=== PATIENT | female | born 1985 | race Caucasian/White ===

== ENCOUNTER 2024-10-01 19:40 | Outpatient (CLI) | payer OTHER ==
[~2024-10-01] VITALS: Ht 152.4 cm; Wt 112.9 kg
[~2024-10-01 19:40] MED LIST: PEPCID40 MG PO; PHENERGAN25 MG PO; PRENATAL CAPLE1 EACH PO
[2024-10-01 20:00] VITALS: BP 133/82
[2024-10-01] MEDS ORDERED: RINGERS SOLUTION,LACTATED 1,000 ML IV SCH (20:30)
[2024-10-01] MEDS ORDERED: IRON18 M1 PO (20:38)
[2024-10-01 21:02] LABS: BASO % 0.4 % (0.1-1.2); EOS # 0.19 (0.04-0.54); EOS % 1.4 % (0.7-7.0); LYMPH # 2.03 (1.18-3.74); LYMPH % 15.4 % (19.3-53.1); MEAN PLATELET VOLUME 9.70 fl (9.4-12.4); MONO # 0.57 (0.24-0.82); MONO % 4.3 % (4.7-12.5); NEUT # 10.22 (1.56-6.13); NEUT % 77.7 % (34.0-71.1); RED CELL DISTRIBUTION WIDTH 14.8 % (11.6-14.4); URINE APPEARANCE Clear; URINE BILIRRUBIN Negative (NEGATIVE); URINE BLOOD Trace; URINE COLOR Yellow; URINE GLUCOSE Negative (NEGATIVE); URINE KETONE Negative (NEGATIVE); URINE LEUKOCYTE Negative; URINE NITRATE Negative; URINE PROTEIN Negative (NEGATIVE); URINE UROBILINOGEN 0.2 E.U./dl
[2024-10-01 21:06] LABS: URINE BACTERIA 316.6 uL (0.0-1933); URINE EPITHELIAL CELLS 6.3 uL (0.0-38.8); URINE RBC 10.4 uL (0.0-20.8); URINE WBC 6.4 uL (0.0-23.2)
[2024-10-01 21:10] LABS: URINE CAST 0.00 uL (0.0-1.40)
[2024-10-01 21:31] LABS: INR 0.97
[2024-10-01 21:40] LABS: ALT/SGPT 16.0 U/L (12-78); AST/SGOT 12.0 U/L (15-37); BILIRUBIN TOTAL 0.39 mg/dL (0.3-1.2); BUN CREA RATIO 9.0 (7.0-25.0); CREATININE SERUM 0.58 mg/dL (0.55-1.02); GFR 117.63; GLOBULINA 3.7 G/DL (2.4-3.5); GLUCOSE FASTING 103.0 mg/dL (65-100); OSMOLALITY SERUM 279.0 MOSM/KG (275-295)
[2024-10-01 23:35] VITALS: BP 119/76; O2SAT 100
[2024-10-02 03:10] VITALS: BP 121/74
[2024-10-02 07:24] VITALS: BP 130/79
[2024-10-02 11:44] VITALS: BP 124/77
[2024-10-02 15:11] VITALS: BP 130/78
[2024-10-02 20:52] LABS: CREATININE URINE 27.5 MG/DL; URINE PROT QUANT 24HR 6.7 MG/DL
[2024-10-02 21:05] LABS: URINE PROT QUANT 24 HR 288.1 MG/24HR (42-225)
[2024-10-02 21:06] LABS: CREATINE CLEARANCE 158.2 ML/MIN (97-137); CREATININE SERUM 0.52 mg/dL (0.6-1.0)
[2024-10-02 21:14] VITALS: BP 125/70
[2024-10-03 07:28] VITALS: BP 112/74
== END 2024-10-03 09:50 | disposition home or self-care (01) ==
LOC: OBS/DEL 19:40
PROVIDERS: ATTEND Specialist
DX: O26.892 Other specified pregnancy related conditions, second trimester (principal); Z3A.26 26 weeks gestation of pregnancy

== ENCOUNTER 2024-12-27 04:07 | Inpatient (IN) | payer OTHER ==
[2024-12-27] VITALS (7 sets, daily range): BP systolic 126–148; BP diastolic 51–84
[~2024-12-27] VITALS: Ht 160 cm; Wt 109.8 kg
[~2024-12-27 04:07] MED LIST changes: +IRON18 M1 PO
[2024-12-27] MEDS ORDERED: RINGERS SOLUTION,LACTATED 1,000 ML IV SCH (04:30)
[2024-12-27] MEDS ORDERED: ADULT ASPIRIN81 MG PO (04:39)
[2024-12-27 06:47] LABS: BASO % 0.4 % (0.1-1.2); EOS # 0.13 (0.04-0.54); EOS % 1.0 % (0.7-7.0); LYMPH # 2.53 (1.18-3.74); LYMPH % 19.8 % (19.3-53.1); MEAN PLATELET VOLUME 10.80 fl (9.4-12.4); MONO # 0.69 (0.24-0.82); MONO % 5.4 % (4.7-12.5); NEUT # 9.19 (1.56-6.13); NEUT % 72.0 % (34.0-71.1); RED CELL DISTRIBUTION WIDTH 13.5 % (11.6-14.4)
[2024-12-27 06:52] LABS: URINE APPEARANCE Clear; URINE BILIRRUBIN Negative (NEGATIVE); URINE BLOOD Negative; URINE COLOR Yellow; URINE GLUCOSE Negative (NEGATIVE); URINE KETONE Negative (NEGATIVE); URINE LEUKOCYTE Trace; URINE NITRATE Negative; URINE PROTEIN Negative (NEGATIVE); URINE UROBILINOGEN 0.2 E.U./dl
[2024-12-27 06:56] LABS: URINE BACTERIA 185.9 uL (0.0-1933); URINE EPITHELIAL CELLS 6.6 uL (0.0-38.8); URINE WBC 11.6 uL (0.0-23.2)
[2024-12-27 07:10] LABS: INR 0.94
[2024-12-27 07:12] LABS: URINE CAST 0.00 uL (0.0-1.40); URINE RBC 1.7 uL (0.0-20.8)
[2024-12-27 07:24] LABS: ALT/SGPT 25.0 U/L (12-78); AST/SGOT 18.0 U/L (15-37); BILIRUBIN TOTAL 0.47 mg/dL (0.3-1.2); BUN CREA RATIO 9.0 (7.0-25.0); CREATININE SERUM 0.56 mg/dL (0.55-1.02); GFR 121.81; GLOBULINA 3.6 G/DL (2.4-3.5); GLUCOSE FASTING 90.0 mg/dL (65-100); OSMOLALITY SERUM 276.0 MOSM/KG (275-295)
[2024-12-27] MEDS ORDERED: OXYTOCIN 500 ML IV SCH (09:00)
[2024-12-27] MEDS ORDERED: MORPHINE SULFATE 4 MG/ML CARTRIDGE IV ONE (14:15)
[2024-12-27] MEDS ORDERED: CHLORHEXIDINE GLUCONATE 120 ML BOTTLE TOP ONE (23:08)
[2024-12-27] MEDS ORDERED: OXYTOCIN 20 UNITS/1000ML RL PIGGYBAG IV ONE (23:08)
[2024-12-27] MEDS ORDERED: ERYTHROMYCIN BASE OPHT 1GM EACH TUBE OP ONE (23:08)
[2024-12-27] MEDS ORDERED: LIDOCAINE HCL 1% 10ML VIAL ONE (23:09)
[2024-12-28] MEDS ORDERED: CEFAZOLIN SODIUM 1,000 MG VIAL ONE ×2 (00:20→00:30)
[2024-12-28] MEDS ORDERED: OXYTOCIN 10 UNITS/ML VIAL ONE ×2 (00:28→03:45)
[2024-12-28] MEDS ORDERED: ERYTHROMYCIN BASE OPHT 1GM EACH TUBE OP ONE (00:30)
[2024-12-28] MEDS ORDERED: MORPHINE SULFATE 4 MG/ML VIAL IV PRN (03:00)
[2024-12-28] MEDS ORDERED: KETOROLAC TROMETHAMINE 60 MG VIAL IM ONE (03:00)
[2024-12-28 05:15] VITALS: BP 126/72
[2024-12-28 07:19] LABS: BASO % 0.2 % (0.1-1.2); EOS # 0.01 (0.04-0.54); EOS % 0.1 % (0.7-7.0); LYMPH # 1.10 (1.18-3.74); LYMPH % 6.2 % (19.3-53.1); MEAN PLATELET VOLUME 10.00 fl (9.4-12.4); MONO # 0.78 (0.24-0.82); MONO % 4.4 % (4.7-12.5); NEUT # 15.86 (1.56-6.13); NEUT % 88.6 % (34.0-71.1); RED CELL DISTRIBUTION WIDTH 13.2 % (11.6-14.4)
[2024-12-28 07:33] VITALS: BP 109/67
[2024-12-28] MEDS ORDERED: SIMETHICONE 125 MG CAPSULE PO SCH (09:00)
[2024-12-28] MEDS ORDERED: DOCUSATE SODIUM 100MG CAP PO SCH (09:00)
[2024-12-28] MEDS ORDERED: ACETAMINOPHEN 325 MG TABLET PO SCH (12:00)
[2024-12-28] MEDS ORDERED: OxyCODONE HCL 5 MG TABLET (ROXICODONE) PO SCH (12:00)
[2024-12-28 13:06] VITALS: BP 110/74
[2024-12-28] MEDS ORDERED: ENOXAPARIN SODIUM 40 MG/0.4 ML SYRINGE SUBCUTANEO ONE (22:00)
[2024-12-28 22:17] VITALS: BP 108/61
[2024-12-29 01:27] VITALS: BP 143/79
[2024-12-29] MEDS ORDERED: COLACE100 MG PO (08:47)
[2024-12-29] MEDS ORDERED: IBU800 MG PO (08:47)
[2024-12-29] MEDS ORDERED: PERCOCET 5-3251 EACH PO (08:47)
[2024-12-29 12:35] VITALS: BP 130/84
== END 2024-12-29 15:13 | disposition home or self-care (01) | DRG 787 ==
LOC: LDR 04:07 → OB/GYN 12-28 05:01
PROVIDERS: ADMIT Specialist; ATTEND Specialist
PROC: 4A1HXCZ Monitoring of Products of Conception, Cardiac Rate, External Approach (ICD-10-PCS; 2024-12-27)
PROC: 10D00Z1 Extraction of Products of Conception, Low, Open Approach (ICD-10-PCS; principal; 2024-12-28 11:45)
DX: O82 Encounter for cesarean delivery without indication (principal); Z68.42 Body mass index [BMI] 45.0-49.9, adult; E66.813 Obesity, class 3; O62.1 Secondary uterine inertia; O13.4 Gestational [pregnancy-induced] hypertension without significant proteinuria, complicating childbirth; O99.214 Obesity complicating childbirth; Z3A.39 39 weeks gestation of pregnancy; Z37.0 Single live birth